=== PATIENT | male | born 1990 | race Hispanic/Latino ===

== ENCOUNTER 2018-09-28 06:36 | Emergency (ER) | payer SELFPAY ==
[2018-09-28 07:05] LABS: Basophils % (Auto) 0.7 % (0.0-1.8); Eosinophils # (Auto) 0.2 K/mm3 (0.0-0.4); Eosinophils % (Auto) 3.5 % (0.0-4.3); Hematocrit 39.5 % (35.5-45.6); Hemoglobin 13.7 gm/dl (11.8-15.2); Lymphocytes # (Auto) 2.4 K/mm3 (1.2-5.4); Lymphocytes % (Auto) 36.1 % (13.4-35.0); Mean Corpuscular HGB Conc 35 % (32-34); Mean Corpuscular Volume 88 fl (84-94); Monocytes # (Auto) 0.6 K/mm3 (0.0-0.8); Monocytes % (Auto) 9.4 % (0.0-7.3); Platelet Count 213 K/mm3 (140-440); Red Blood Count 4.48 M/mm3 (3.65-5.03); Red Cell Distribution Width 14.2 % (13.2-15.2)
[2018-09-28 07:17] LABS: BUN/Creatinine Ratio 17; Blood Urea Nitrogen 12 mg/dL (9-20); Calcium 9.2 mg/dL (8.4-10.2); Hemolysis Index 3
--- NOTE | 2018-09-28 08:14 | Emergency Department Report ---
ED General Adult HPI - General Chief complaint: Anxiety Stated complaint: LIGHT HEADED Time Seen by Provider: 09/28/18 07:42 Source: patient Mode of arrival: Ambulatory Limitations: No Limitations - History of Present Illness Initial comments: Patient is a 28-year-old male who presents to the emergency room with complaints of waking up this morning and he felt like a "generator turned on in his body and he was shaking and twitching." He states he now feels slightly lightheaded and nauseous. States during the incident is chest felt heavy but now feels better. He denies any vomiting, diarrhea, urinary symptoms, abdominal pain, shortness of breath. He denies any past medical history or allergies to medications. He endorses tobacco use and occasional alcohol use. He states he takes buprenorphine for previous oxycodone use. - Related Data Allergies Allergy/AdvReac Type Severity Reaction Status Date / Time No Known Allergies Allergy Unverified 09/28/18 06:49 ED Review of Systems ROS: Stated complaint: LIGHT HEADED Other details as noted in HPI Comment: All other systems reviewed and negative ED Past Medical Hx - Past Medical History Previous Medical History?: Yes Hx Asthma: Yes Additional medical history: Opiates Addiction - Surgical History Past Surgical History?: No - Social History Smoking Status: Current Every Day Smoker Substance Use Type: None ED Physical Exam - General Limitations: No Limitations General appearance: alert, in no apparent distress - Head Head exam: Present: atraumatic, normocephalic - Eye Eye exam: Present: normal appearance - ENT ENT exam: Present: mucous membranes moist - Respiratory Respiratory exam: Present: normal lung sounds bilaterally. Absent: respiratory distress, wheezes, rales, rhonchi, stridor, accessory muscle use, decreased breath sounds, prolonged expiratory - Cardiovascular Cardiovascular Exam: Present: normal rhythm, bradycardia, normal heart sounds. Absent: systolic murmur, diastolic murmur, rubs, gallop - Neurological Exam Neurological exam: Present: alert, oriented X3 - Psychiatric Psychiatric exam: Present: normal affect, normal mood - Skin Skin exam: Present: warm, dry, intact ED Course Vital Signs 09/28/18 09/28/18 06:43 09:04 Temperature 97.9 F Pulse Rate 78 74 Respiratory 18 16 Rate Blood Pressure 128/90 Blood Pressure 124/86 [Left] O2 Sat by Pulse 98 99 Oximetry ED Medical Decision Making - Lab Data Result diagrams: 09/28/18 06:53 09/28/18 06:53 - EKG Data EKG shows normal: sinus rhythm, axis, QRS complexes, ST-T waves Rate: bradycardia (at 51) - EKG Data 09/28/18 08:41 ME interval decreased at 100 otherwise normal - Radiology Data Radiology results: report reviewed CHEST 2 VIEWS INDICATION / CLINICAL INFORMATION: chest heaviness. COMPARISON: None available. FINDINGS: SUPPORT DEVICES: None. HEART / MEDIASTINUM: No significant abnormality. LUNGS / PLEURA: No significant pulmonary or pleural abnormality. No pneumothorax. ADDITIONAL FINDINGS: No significant additional findings. IMPRESSION: 1. No acute findings. Signer Name: Diego Munoz MD Signed: 09/28/2018 8:23 AM Workstation Name: [id number] Transcribed By: TONNY Dictated By: Diego Munoz MD Electronically Authenticated By: Diego Munoz MD Signed Date/Time: 09/28/18 0823 - Medical Decision Making Patient is a 28-year-old male who presents to the emergency room with complaints of waking up this morning and he felt like a "generator turned on in his body and he was shaking and twitching." He states he now feels slightly lightheaded and nauseous. States during the incident is chest felt heavy but now feels better. He denies any vomiting, diarrhea, urinary symptoms, abdominal pain, shortness of breath. He denies any past medical history or allergies to medications. He endorses tobacco use and occasional alcohol use. He states he takes buprenorphine for previous oxycodone use. vitals are normal. EKG with sinus pilar otherwise WNL. Labs are stable. CXR with no acute process. UA is normal. UDS is positive for amphetamines. advised pt that the symptoms he experienced could be related to amphetamine use or anxiety related. discussed with pt the effects of amphetamine use. advised pt to please drink plenty of water. follow up with a primary care doctor in the next 2-3 days. return to the emergency room for any new or worsening symptoms. - Differential Diagnosis ACS, drug abuse, anxiety, PTX, rhabdomyolysis, electrolyte disturbance Critical care attestation.: If time is entered above; I have spent that time in minutes in the direct care of this critically ill patient, excluding procedure time. ED Disposition Clinical Impression: Chest heaviness, Light headedness, Anxiety, Amphetamine abuse Disposition: DC-01 TO HOME OR SELFCARE Is pt being admited?: No Does the pt Need Aspirin: No Condition: Stable Instructions: Chest Pain (ED), Anxiety (ED) Additional Instructions: please drink plenty of water. follow up with a primary care doctor in the next 2-3 days. return to the emergency room for any new or worsening symptoms. Referrals: ELIZA ALVARENGA MD [Primary Care Provider] - 2-3 Days [facility] [Outside] - 2-3 Days [facility] [Outside] - 2-3 Days Time of Disposition: 08:53 Print Language: KAZAKH
--- NOTE | 2018-09-28 08:27 | XRay Report ---
CHEST 2 VIEWS INDICATION / CLINICAL INFORMATION: chest heaviness. COMPARISON: None available. FINDINGS: SUPPORT DEVICES: None. HEART / MEDIASTINUM: No significant abnormality. LUNGS / PLEURA: No significant pulmonary or pleural abnormality. No pneumothorax. ADDITIONAL FINDINGS: No significant additional findings. IMPRESSION: 1. No acute findings. Signer Name: Diego Munoz MD Signed: 09/28/2018 8:23 AM Workstation Name: [id number]
[2018-09-28 08:36] LABS: Bilirubin,Urine NEG (Negative); Blood,Urine NEG (Negative); Color,Urine Yellow (Yellow); Mucus,Urine 1+ /HPF; Protein,Urine <15 mg/dL mg/dL (Negative); Urobilinogen,Urine < 2.0 mg/dL (<2.0); WBC,Urine < 1.0 /HPF (0.0-6.0)
[2018-09-28 08:37] LABS: Benzodiazepines Screen,Urine PRESUMPTIVE NEGATIVE; Cannabinoid Screen,Urine PRESUMPTIVE NEGATIVE; Cocaine Screen,Urine PRESUMPTIVE NEGATIVE; Methadone Screen,Urine PRESUMPTIVE NEGATIVE; Opiate Screen,Urine PRESUMPTIVE NEGATIVE
[2018-09-28 08:54] LABS: Amphetamine Screen,Urine PRESUMPTIVE POSITIVE
[2018-09-28 09:07] VITALS: BP 124/86
== END 2018-09-28 09:04 | disposition home or self-care (01) ==
LOC: ED 06:36
DX: R07.89 Other chest pain (principal); R42 Dizziness and giddiness; F41.9 Anxiety disorder, unspecified; F15.10 Other stimulant abuse, uncomplicated; R11.0 Nausea; J45.909 Unspecified asthma, uncomplicated; F17.200 Nicotine dependence, unspecified, uncomplicated
CPT/HCPCS: 36415; 71046; 80048; 80307; 81001; 82550; 84484; 85025; 93005; 93010